=== PATIENT | female | born 1955 | race Hispanic/Latino ===

== ENCOUNTER 2023-06-24 21:52 | Emergency (ER) | payer OTHER, SELFPAY ==
[2023-06-24 22:00] VITALS: BP 174/90
[2023-06-24 22:15] LABS: % Basophils 0.5 % (0-2); % Eosinophils 3.3 % (0-6); % Immature Granulocytes 0.1 % (0-0.5); % Lymphocytes 35.2 % (20.5-51.1); % Neutrophils 52.9 % (42.2-75.2); Absolute Eosinophils 0.3 10^3/uL (0-0.7); Absolute Lymphocytes 2.8 10^3/uL (1.2-3.4); Absolute Monocytes 0.6 10^3/uL (0.1-0.6); Absolute Neutrophils 4.2 10^3/uL (1.4-6.5); Hematocrit 37.4 % (37.0-47.0); Hemoglobin 12.7 g/dL (12.0-16.0); Mean Corpuscular Volume 88.2 fL (81.0-99.0); Mean Platelet Volume 9.7 fL (7.4-10.4); Nucleated Red Blood Cells % 0 %; Platelet Count 275 10^3/uL (130-400); Red Blood Cell Count 4.24 10^6/uL (4.20-5.40); Red Cell Dist. Width 13.3 % (11.5-14.5); White Blood Cell Count 7.9 10^3/uL (4.8-10.8)
[2023-06-24 22:41] LABS: Troponin I < 0.012 ng/ml
[2023-06-24 22:52] LABS: ALT (SGPT) 35 U/L (0-35); AST (SGOT) 43 U/L (14-36); Albumin 4.5 g/dl (3.5-5.0); Alkaline Phosphatase 86 U/L (38-126); Blood Urea Nitrogen 13 mg/dl (7-17); Calcium 9.5 mg/dl (8.4-10.2); Carbon Dioxide 29 mmol/L (22-30); Chloride 102 mmol/L (98-107); Glucose 104 mg/dl (70-99); Potassium 3.8 mmol/L (3.5-5.1); Sodium 136 mmol/L (135-145); Total Bilirubin 0.9 mg/dl (0.2-1.3); Total Protein 7.9 g/dl (6.3-8.2); eGFR > 60.00
--- NOTE | 2023-06-24 23:01 | ED.GENMED ---
History of Present Illness
<ENRIQUE Mendez - Last Filed: 06/25/23 01:59>
General
Chief Complaint: Chest Pain
Source: patient
Exam Limitations: none
Time Seen by Provider: 06/24/23 23:01
Nursing documentation reviewed up to this point in time: agreed with
Travel History
Have you had any contact with someone who has COVID-19?: No
Do you have any symptoms of coronavirus? Fever > 100 degrees, chills, cough, shortness of breath, sore throat, loss of taste or smell, muscle aches, or headache?: No
History of Present Illness
History of Present Illness:
68 y/o F with history of CHF, CAD, and valve replacement presents for chest pain x 3 hours. She reports the pain is in the center right below her chest. She states that it is constant and moderate. She reports no factors that help the pain or make
it worse. She denies any previous history of pain or change of pain with certain foods. She is also reporting palpitations that feel like 'loud pounding in chest' for the past 10 days. She reports these palpitations happen at random and are not
related to any anxiety/stress. She is also reports jaw tingling and tingling on her L side down to her hip since yesterday. She reports the tingling happened once. Patient complainng of upper back pain/shoulder pain for 10 days. She states the pain
does not radiate. She has not done any heavy lifting or change her pillows. Patient is also reporting a headache for the past 10 days. She states she has been hydrating well. She has been taking tylenol 500mg for all her symptoms/pain with temproary
relief. She denies numbness, nausea, vomiting, diarrhea, new medications, stress/anxiety, or dizziness.
If applicable-neuro sx onset
Onset of symptoms known: Yes
Date of onset of symptoms: 06/24/23
Time of onset of symptoms: 21:00
Past History
<ENRIQUE Mendez - Last Filed: 06/25/23 01:59>
Past History
ED Past Medical History: CAD, CHF, HTN, Hypercholesterolemia, Valvular disease, Hypothyroidism and Other (Hernia, TIA,)
ED Past Surgical History: Appendectomy, Cardiac (mitral valve replaced, chronic anticoagulation), Cholecystectomy and Gynecological (total Hysterectomy)
Social History
Tobacco: Former smoker
Alcohol: Occasional
Personal:
Living: with family
Review of Systems
<Carol AnnENRIQUE Tineo - Last Filed: 06/25/23 01:59>
Review of Systems
Allergies reviewed?: Yes
All Other Systems: ROS reviewed and negative except as documented in HPI and ROS
Constitutional: Reports no symptoms
EENT: Reports no symptoms
Respiratory: Reports no symptoms
Cardiac: Reports chest pain and palpitations
ABD/GI: Reports no symptoms
: Reports no symptoms
Musculoskeletal: Reports back pain
Skin: Reports no symptoms
Neurological: Reports no symptoms
Endocrine: Reports no symptoms
Hematologic/Lymphatic: Reports no symptoms
Psychiatric: Reports no symptoms
Phy Exam
<ENRIQUE Mendez - Last Filed: 06/25/23 01:59>
General Physical Exam
General Presentation: well appearing and no apparent distress
General age: appears stated age
General Skin: warm
General Habitus: normal
General Mental: alert
General Hydration: appears well hydrated
ENT Exam
ENT Exam: neck supple
Cardiovascular Exam
Cardiovascular Exam: regular rate/rhythm, no edema, no JVD, normal peripheral pulses and other (tender to palpation around xiphoid process )
Pulmonary Exam
Pulmonary Exam: lungs clear and no respiratory distress
Gastrointestinal Exam
Gastrointestinal Exam: normal bowel sounds, non tender, soft and non distended
Neurological Exam
Neurological Exam: alert and oriented x3
Motor
Seizure Activity: none
Gait: normal
Tremors: none
Musculoskeletal Exam
Musculoskeletal Exam: full ROM, no edema, back tenderness (tender to palpation in center of back along medial scapula ) and neuro vasc intact
Skin Exam
Skin Exam: normal color, warm/dry, no rash and no petechia
Psychiatric Exam
Psychiatric Exam: normal mood/affect
<Grzegorz Mathur DO - Last Filed: 06/25/23 06:42>
Heart Score for Chest Pain Patients
STEMI patient?: No
History: Slightly or Non-Suspicious
ECG: Normal
Age: >/= 65 years
Risk Factors: 1 or 2 Risk Factors
Troponin: </= Normal Limit
Heart Score for Chest Pain Patients: 3
Heart Score Risk: 2.5% MACE over next 6 weeks
Course
<ENRIQUE Mendez - Last Filed: 06/25/23 01:59>
Orders/Labs/Results
Orders:
Orders
06/24/23 21:54
Electrocardiogram (*1) Urgent
Reason for Study: Palpitations
EKG- Treatment ONCE
06/24/23 22:06
Cardiac Monitoring- Treatment ONCE
IV Insert/Care/Rem.- Treatment PRN
O2 Therapy [RESP] Urgent
Titrate/Wean O2 to maintain O2 sat greater than (%): 90
Special Instructions: Maintain sats >/=90%
Pulse Ox/spot Check [RESP] Urgent
Quantity: 1
Special Instructions: ON ROOM AIR
06/24/23 22:07
Complete Blood Count/With Diff Urgent
Comprehensive Metabolic Panel Urgent
Troponin I Urgent
06/25/23 00:25
0.9% Sodium Chloride 500 ml [Nss] 500 ml IV BOLUS
Acetaminophen [Tylenol] 650 mg PO NOW STA
06/25/23 02:00
Troponin I Urgent
06/25/23 02:40
Electrocardiogram (*1) Urgent
Reason for Study: Chest Pain
EKG- Treatment ONCE
06/25/23 02:41
CR Chest - 2 Views Urgent
Comment:
Reason For Exam: cp
Abnormal Lab Results
06/24/23
22:07
Glucose 104 H mg/dl
(70-99)
AST 43 H U/L
(14-36)
06/24/23 22:07
06/24/23 22:07
Vital Signs
Initial and Last Documented VS:
Initial Vital Signs
Temp Pulse Resp BP Pulse Ox
98.1 F 83 19 174/90 100
06/24/23 22:00 06/24/23 22:00 06/24/23 22:00 06/24/23 22:00 06/24/23 22:00
Last Documented Vital Signs
Temp Pulse Resp BP Pulse Ox
98.1 F 68 18 103/55 99
06/24/23 22:00 06/25/23 04:05 06/25/23 04:05 06/25/23 04:00 06/25/23 04:00
[place];Grzegorz Mathur, DO - Last Filed: 06/25/23 06:42>
Orders/Labs/Results
Orders:
Orders
06/24/23 21:54
Electrocardiogram (*1) Urgent
Reason for Study: Palpitations
EKG- Treatment ONCE
06/24/23 22:06
Cardiac Monitoring- Treatment ONCE
IV Insert/Care/Rem.- Treatment PRN
O2 Therapy [RESP] Urgent
Titrate/Wean O2 to maintain O2 sat greater than (%): 90
Special Instructions: Maintain sats >/=90%
Pulse Ox/spot Check [RESP] Urgent
Quantity: 1
Special Instructions: ON ROOM AIR
06/24/23 22:07
Complete Blood Count/With Diff Urgent
Comprehensive Metabolic Panel Urgent
Troponin I Urgent
06/25/23 00:25
0.9% Sodium Chloride 500 ml [Nss] 500 ml IV BOLUS
Acetaminophen [Tylenol] 650 mg PO NOW STA
06/25/23 02:00
Troponin I Urgent
06/25/23 02:40
Electrocardiogram (*1) Urgent
Reason for Study: Chest Pain
EKG- Treatment ONCE
06/25/23 02:41
CR Chest - 2 Views Urgent
Comment:
Reason For Exam: cp
Abnormal Lab Results
06/24/23
22:07
Glucose 104 H mg/dl
(70-99)
AST 43 H U/L
(14-36)
06/24/23 22:07
06/24/23 22:07
Vital Signs
Initial and Last Documented VS:
Initial Vital Signs
Temp Pulse Resp BP Pulse Ox
98.1 F 83 19 174/90 100
06/24/23 22:00 06/24/23 22:00 06/24/23 22:00 06/24/23 22:00 06/24/23 22:00
Last Documented Vital Signs
Temp Pulse Resp BP Pulse Ox
98.1 F 68 18 103/55 99
06/24/23 22:00 06/25/23 04:05 06/25/23 04:05 06/25/23 04:00 06/25/23 04:00
<Grzegorz Mathur DO - Last Filed: 06/25/23 06:42>
*Pulse Oximetry
Patient hypoxic: no
*Critical Care Note
Total Time (30-74mins, 75-104mins- exclusive of procedures): Not Applicable
<ENRIQUE Mendez - Last Filed: 06/25/23 01:59>
Update Note
Update Note:
01:58: Patient reports chest pain is better after tylenol. Still reporting back pain. [place] dizzy/lightheaded when she stood to use bathroom. 2nd order for troponin placed.
ED Attending Note
<ENRIQUE Mendez - Last Filed: 06/25/23 01:59>
-
Portions of this chart may have been created with voice recognition software.� Occasional wrong word or��sound alike� substitutions may have occurred due to the inherent limitations of voice recognition software.
<Grzegorz Mathur DO - Last Filed: 06/25/23 06:42>
ED Attending Note
Patient seen and examined by attending physician: Yes
I performed the substantive portion of visit, reviewed & personally made and approve the management plan that is documented in note by myself or ANTONIO.: Yes
ED Attending Note:
Pleasant 68-year-old female who presents with palpitations that have been present for the last few weeks. She does report left-sided upper back pain has been present for 2 weeks but progressively worsening. She states that she had tingling in her
lower jaw that was associated with some chest pain. Denies fever, chills, nausea or vomiting. She states that she had the symptoms before. She does have a past medical history significant for CHF and CAD. She has hypertension and hyperlipidemia.
Vital signs are stable. Patient not hypoxic
Nursing note reviewed. I agree with nursing documentation up to this point in time.
Home Meds and allergies reviewed.
NUMBER AND COMPLEXITY OF PROBLEMS ADDRESSED AT THE ENCOUNTER
� Chronic conditions affecting care: CHF, CAD, hypertension, hyperlipidemia
� Acute Exacerbation and/or Progression of Chronic Illness:
� Differential Diagnosis includes: Musculoskeletal chest pain, ACS
AMOUNT AND/OR COMPLEXITY OF DATA TO BE REVIEWED AND ANALYZED
I performed an independent evaluation of the following and my interpretation is:
EKG: Normal sinus rhythm rate 85 with normal intervals, indeterminate axis. No evidence of acute ischemia. When compared EKG dated November 10, 2021, no significant change found
CT:
X-rays:
Ultrasound:
Laboratory Studies: First troponin negative.
Other:
Review of other/old records:
Clinical information was obtained by an independent historian:
Prescriptions/Medications Considered but not given:
Further testing considered but not performed:
RISK OF COMPLICATIONS AND/OR MORBIDITY OR MORTALITY OF PATIENT MANAGEMENT
Social determinants of health affecting care: Good Social Support
Discussion with other providers:
Escalation of care including admission/observation vs risk of discharge considered:
CRITICAL CARE NOTE:
Total Time (exclusive of procedures):
Update:
Discharge Plan
Departure
Patient Disposition: Home (Routine Discharge)
Date of Disposition: 06/25/23
Time of Disposition: 03:47
Patient with high blood pressure during this ER visit?: Yes
Discharge Problem:
Chest pain
Instructions: Chest Pain DCA Follow Up
Prescriptions:
No Action
atorvastatin 10 MG tablet
10 mg PO NOON
carvedilol 3.125 MG tablet
3.125 mg PO BID
levothyroxine 75 MCG tablet
75 mcg PO DAILY AT 0700
lisinopril 10 MG tablet
10 mg PO DAILY
loratadine 10 MG tablet
10 mg PO DAILY PRN (Reason: allergies)
hydrochlorothiazide 12.5 MG tablet
12.5 mg PO DAILY
cholecalciferol (vitamin D3) 2,000 UNITS tablet
2,000 units PO DAILY
baclofen 10 MG tablet
10 mg PO BIDPRN PRN (Reason: leg twitching)
warfarin [Jantoven] 1 MG tablet
2 mg PO MO@1999
acetaminophen [Tylenol Extra Strength] 500 MG tablet
500 mg PO Q6HPRN PRN (Reason: pain)
warfarin [Jantoven] 1 MG tablet
3 mg PO SUTUWETHFRSA@1999
gabapentin 100 MG capsule
100 mg PO TID Qty: 30 0RF
Referrals:
Siobhan Urrutia DO [Family Provider] -
Activity Restrictions/Additional Instructions:
It was a pleasure meeting you and taking part in your care. We hope for your continued healing and wellness.
Please read discharge instructions in their entirety. However, they are for general education and may not describe your exact diagnosis at discharge. Information on your ER visit and medical conditions were discussed with you along with appropriate
follow up information...
If indicated, please take your medications as instructed and indicated on discharge paperwork.
Please schedule a follow up appointment as directed. Call to schedule an appointment
Please return to the emergency department with ANY change in, persisting, or worsening of symptoms. If any of your symptoms do not improve, or persist, or become more severe within 6-12 hours, please return to the emergency department for further
care.
Please return to the emergency department if you develop a headache, neck pain/stiffness, fever greater than 100.4F, chest pain, shortness of breath, persistent nausea, vomiting, slurred speech, difficulty walking, numbness/tingling, weakness, signs
of infection or any other symptoms that are worrisome to you.
If you have any questions or concerns please do not hesitate to call the Hospital at or E-mail me directly at [email or web address]
Interventions
Interventions:
*Risk Screen - Suicide Last Done: 06/24/23 22:00
*General Assessment Last Done: 06/24/23 22:00
*Neglect/Abuse Screening Last Done: 06/24/23 22:00
ED- Fall Risk Assessment Last Done: 06/24/23 23:15
*ED COVID-19 Vaccine History Last Done: 06/24/23 22:00
*Nursing Disposition Last Done: 06/25/23 04:05
ED- Cardiac Assessment Last Done: 06/24/23 23:15
Discharge Date and Time
Discharge Date/Time: 06/25/23 04:09
[2023-06-24 23:14] VITALS: BMI 30.1
[2023-06-24 23:24] VITALS: BP 140/69
[2023-06-25] VITALS: BP 113/49
[2023-06-25] MEDS: NSS 500 IV (00:35)
[2023-06-25] MEDS: TYLENOL 650 MG PO (00:35)
[2023-06-25 01:00] VITALS: BP 103/51
[2023-06-25 02:00] VITALS: BP 116/63
[2023-06-25 02:36] LABS: Troponin I < 0.012 ng/ml
[2023-06-25 03:00] VITALS: BP 100/49
[2023-06-25 04:00] VITALS: BP 103/55
== END 2023-06-25 04:09 | disposition home or self-care (01) ==
LOC: EMR 21:52
PROVIDERS: EMERGENCY PHYSICIAN Student in an Organized Health Care Education/Training Program; FAMILY PHYSICIAN Family Medicine
DX: R07.89 Other chest pain (principal); R00.2 Palpitations; I11.0 Hypertensive heart disease with heart failure; I50.9 Heart failure, unspecified; I25.10 Atherosclerotic heart disease of native coronary artery without angina pectoris; E03.9 Hypothyroidism, unspecified; E78.00 Pure hypercholesterolemia, unspecified; I38 Endocarditis, valve unspecified; Z79.01 Long term (current) use of anticoagulants; Z86.73 Personal history of transient ischemic attack (TIA), and cerebral infarction without residual deficits; Z87.891 Personal history of nicotine dependence; Z90.49 Acquired absence of other specified parts of digestive tract; Z90.710 Acquired absence of both cervix and uterus; Z95.2 Presence of prosthetic heart valve
CPT/HCPCS: 99283; 96360; 71046; 80053; 84484; 85025; 93005

== ENCOUNTER → 2024-09-23 08:03 | Outpatient (REF) | payer OTHER, SELFPAY | LOC: RCS 08:03 | PROVIDERS: ATTENDING PHYSICIAN Internal Medicine Cardiovascular Disease; FAMILY PHYSICIAN Family Medicine | DX: Z95.2 Presence of prosthetic heart valve (principal) | CPT/HCPCS: 93306 ==